=== PATIENT | female | born 1950 | race Caucasian/White ===

== ENCOUNTER 2024-03-20 07:26 | Emergency (ER) | payer MEDICARE, SELFPAY ==
[2024-03-20 07:32] VITALS: BP 154/74; PULSE 74; RESP 18; TEMP 37; O2SAT 96
--- NOTE | 2024-03-20 08:01 | CRLHL7_ITS ---
For Patients: As a result of the Century Cures Act, medical imaging exams and procedure reports are released immediately into your electronic medical record. You may view this report before your referring provider. If you have questions, please contact your health care provider. INDICATION: Bruising. On Eliquis. TECHNIQUE: Rincon-scale two-dimensional ultrasound without and with compression as well as color-flow and spectral Doppler of the left lower extremity veins. COMPARISON: None. FINDINGS: Normal compressibility of and flow within the left common femoral, superficial femoral, popliteal, posterior tibial, profunda, and greater saphenous veins is demonstrated. No thrombus is identified. The right common femoral vein is clear. IMPRESSION: Negative left lower extremity venous Doppler study. Dictated by Raúl Harris MD @ 03/20/2024 9:15:19 AM (Electronically Signed)
--- NOTE | 2024-03-20 08:02 | ED.GENADULT ---
HPI - General Adult General Chief complaint: Lower Extremity Swelling Stated complaint: L leg bruising, swelling Time Seen by Provider: 03/20/24 07:49 History of Present Illness HPI narrative: This 73-year-old female comes in with a large bruise on the medial aspect of her left leg. She is on Eliquis to manage atrial fibrillation. She does not report any injury event. She states that she had some overuse injury with pain in her left leg 3 days ago. At that time she went to [facility] and had an x-ray which was negative. 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 She did have her right knee replaced. She has a bruise on the medial aspect now of her left leg extending from her knee half way up to her hip on the medial aspect. She does not report any shortness of breath. Related Data Home Medications ?Medication ?Instructions ?Recorded ?Confirmed apixaban 5 mg tablet (Eliquis) 5 mg PO BID 03/20/24 03/20/24 fexofenadine 180 mg tablet 180 mg PO DAILY 03/20/24 03/20/24 (Rona Hives) rosuvastatin 20 mg tablet (Crestor) 20 mg PO DAILY 03/20/24 03/20/24 valesrtan 160 mg PO DAILY 03/20/24 03/20/24 Allergies Allergy/AdvReac Type Severity Reaction Status Date / Time simvastatin Allergy Mild muscle Verified 03/20/24 07:44 cramps, stiffness Review of Systems Status of ROS: Reports: 10 or more systems reviewed and unremarkable except as noted in History and below Narrative: Constitutional: No fevers, no weight gain or loss. Eyes: No discharge. No vision changes. HENT: No congestion, no sore throat, no ear pain. Cardiovascular: No chest pain, no palpitations. Respiratory: No shortness of breath, no wheezes, no cough. Gastrointestinal: No abdominal pain, no vomiting, no diarrhea. Genitourinary: No dysuria, no hematuria. Musculoskeletal: Normal range of motion. Skin: No rashes, no pruritis. Neurological: No dizziness, weakness, sensory change, speech change. Endo/Heme/Allergies: No bruising or bleeding. No polydipsia. Pysch: no suicidality, no anxiety, no insomnia. All other systems reviewed and are negative. PFSH PFSH Medical History (Updated 03/20/24 @ 09:14 by Simon Sherman MD) After cataract of both eyes not obscuring vision ?H26.493 - Other secondary cataract, bilateral (ICD-10) Atrial fibrillation ?I48.91 - Unspecified atrial fibrillation (ICD-10) Hyperlipemia ?E78.5 - Hyperlipidemia, unspecified (ICD-10) Surgical History (Updated 03/20/24 @ 07:47 by Rosina Villa RN) Total knee replacement status ?Z96.659 - Presence of unspecified artificial knee joint (ICD-10) Social History Smoking Status: Never smoker Do you use any of these nicotine containing products: None How often do you have a drink containing alcohol: monthly or less How many standard drinks containing alcohol do you have on a typical day: 1 or 2 AUDIT-C Alcohol total score: 1 Non-prescribed substance use: denies use Exam Narrative: Exam Narrative: Constitutional: Well-developed, well-nourished, no acute distress. HEENT: Normocephalic, atraumatic. Neck: Normal range of motion. Nontender. Supple. Heart: Intact distal pulses. Lungs: No chest discomfort. No wheezes, rhonchi, or rales. Abdomen: Nontender. Back: Normal range of motion. Extremities: Normal range of motion. Large ecchymosis on the medial aspect of the left leg but no increased warmth or palpable hematoma. No other sign of injury. Skin: Intact. No rash. Warm. No erythema or pallor. Neurologic: No altered sensation. No weakness. Alert and oriented. Psychiatric: No suicidality. No anxiety or depression. No insomnia. Nursing notes and vitals signs are reviewed. Const: Vital Signs, click to edit/add: Vital Signs - 24 hr 03/20/24 07:32 Temperature 98.6 F Pulse Rate [Pulse Oximeter] 74 Respiratory Rate 18 Blood Pressure [Ri ght Upper Arm] 154/74 H Pulse Oximetry 96 Oxygen Delivery Me thod Room Air Course Vital Signs Vital signs: Initial Vital Signs Temperature 98.6 F 03/20/24 07:32 Temperature Source Temporal Artery Scan 03/20/24 07:32 Pulse Rate 74 03/20/24 07:32 Respiratory Rate 18 03/20/24 07:32 Blood Pressure 154/74 H 03/20/24 07:32 Blood Pressure Mean 100 03/20/24 07:32 Blood Pressure Position Sitting 03/20/24 07:32 Pulse Oximetry 96 03/20/24 07:32 Oxygen Delivery Method Room Air 03/20/24 07:32 Vital Signs Temperature 98.6 F 03/20/24 07:32 Pulse Rate 74 03/20/24 07:32 Respiratory Rate 18 03/20/24 07:32 Blood Pressure 154/74 H 03/20/24 07:32 Pulse Oximetry 96 03/20/24 07:32 Oxygen Delivery Method Room Air 03/20/24 07:32 Temperature 98.6 F 03/20/24 07:32 Pulse Rate 74 03/20/24 07:32 Respiratory Rate 18 03/20/24 07:32 Blood Pressure 154/74 H 03/20/24 07:32 Pulse Oximetry 96 03/20/24 07:32 Oxygen Delivery Method Room Air 03/20/24 07:32 Medical Decision Making MDM Narrative Medical decision making narrative: Patient has a large bruise on the medial aspect of her left upper leg. She is on Eliquis to manage atrial fibrillation. She does not describe a particular injury event. She comes in because she is concerned about the size of this bruising. She is able to ambulate normally. She arrives with normal vital signs. An ultrasound of her left lower extremity is obtained and shows no abnormal findings. There is no sign of thrombus or active bleeding. Discharge Plan Discharge Clinical Impression: Ecchymosis Patient Disposition: Home, Self-Care Condition: Stable Additional Instructions: Continue current plans. Follow up with MD return if worsening. Prescriptions: No Action valesrtan 160 mg PO DAILY fexofenadine [Rona Hives] 180 mg tablet 180 mg PO DAILY Eliquis 5 mg tablet 5 mg PO BID rosuvastatin [Crestor] 20 mg tablet 20 mg PO DAILY Follow Up/Referrals: Trixie Cruz, JOINT SETTER [Primary Care Provider] - Stand Alone Forms: [employer] Info Instructions
--- OUTSIDE RECORDS SUMMARY | 2024-03-20 08:11 | XMS_ITS | Data Portability ---
Author Organization [place] - [facility] [employer], [email or web address] [facility] Address [address] [place] [address] Assessment Encounter Date Assessment Date Assessment LastModified by Organization Details LastModified Time 02/09/2024 02/09/2024 ASSESSMENT: Patient is a good candidate for conservative care and the prognosis is for a favorable outcome that achieves the patients' goals. We discussed etiology, activity modifications, home care, and other treatment options. Initially, it is recommended that the patient receive in-office treatment 1 times per week for 8 weeks at which time a re-evaluation will be performed to determine an appropriate change in plan. Initially, treatment will focus on joint manipulation to restore range of motion and reduce pain. We will slowly progress to therapeutic exercises and activities to improve function, strength, and stability may also be used as warranted. If the patient is not responding as expected, more invasive procedures will be discussed along with a referral. All considerations above were discussed with the patient and questions answered to satisfaction. If the patient should have any additional questions, or should the condition evolve or worsen, the patient should not hesitate to contact our office. ASSESSMENT: Patient is a good candidate for conservative care and the prognosis is for a favorable outcome that achieves the patients' goals. We discussed etiology, activity modifications, home care, and other treatment options. Initially, it is recommended that the patient receive in-office treatment 1 times per week for 8 weeks at which time a re-evaluation will be performed to determine an appropriate change in plan. Initially, treatment will focus on joint manipulation to restore range of motion and reduce pain. We will slowly progress to therapeutic exercises and activities to improve function, strength, and stability may also be used as warranted. If the patient is not responding as expected, more invasive procedures will be discussed along with a referral. All considerations above were discussed with the patient and questions answered to satisfaction. If the patient should have any additional questions, or should the condition evolve or worsen, the patient should not hesitate to contact our office. ecram Not available 02/09/2024 15:29:24 03/08/2024 03/08/2024 ASSESSMENT: Patient is a good candidate for conservative care and the prognosis is for a favorable outcome that achieves the patients' goals. We discussed etiology, activity modifications, home care, and other treatment options. Initially, it is recommended that the patient receive in-office treatment 1 times per week for 8 weeks at which time a re-evaluation will be performed to determine an appropriate change in plan. Initially, treatment will focus on joint manipulation to restore range of motion and reduce pain. We will slowly progress to therapeutic exercises and activities to improve function, strength, and stability may also be used as warranted. If the patient is not responding as expected, more invasive procedures will be discussed along with a referral. All considerations above were discussed with the patient and questions answered to satisfaction. If the patient should have any additional questions, or should the condition evolve or worsen, the patient should not hesitate to contact our office. ASSESSMENT: Patient is a good candidate for conservative care and the prognosis is for a favorable outcome that achieves the patients' goals. We discussed etiology, activity modifications, home care, and other treatment options. Initially, it is recommended that the patient receive in-office treatment 1 times per week for 8 weeks at which time a re-evaluation will be performed to determine an appropriate change in plan. Initially, treatment will focus on joint manipulation to restore range of motion and reduce pain. We will slowly progress to therapeutic exercises and activities to improve function, strength, and stability may also be used as warranted. If the patient is not responding as expected, more invasive procedures will be discussed along with a referral. All considerations above were discussed with the patient and questions answered to satisfaction. If the patient should have any additional questions, or should the condition evolve or worsen, the patient should not hesitate to contact our office. ecram Not available 03/08/2024 15:41:47 03/15/2024 03/15/2024 ASSESSMENT: Patient is a good candidate for conservative care and the prognosis is for a favorable outcome that achieves the patients' goals. We discussed etiology, activity modifications, home care, and other treatment options. Initially, it is recommended that the patient receive in-office treatment 1 times per week for 8 weeks at which time a re-evaluation will be performed to determine an appropriate change in plan. Initially, treatment will focus on joint manipulation to restore range of motion and reduce pain. We will slowly progress to therapeutic exercises and activities to improve function, strength, and stability may also be used as warranted. If the patient is not responding as expected, more invasive procedures will be discussed along with a referral. All considerations above were discussed with the patient and questions answered to satisfaction. If the patient should have any additional questions, or should the condition evolve or worsen, the patient should not hesitate to contact our office. ASSESSMENT: Patient is a good candidate for conservative care and the prognosis is for a favorable outcome that achieves the patients' goals. We discussed etiology, activity modifications, home care, and other treatment options. Initially, it is recommended that the patient receive in-office treatment 1 times per week for 8 weeks at which time a re-evaluation will be performed to determine an appropriate change in plan. Initially, treatment will focus on joint manipulation to restore range of motion and reduce pain. We will slowly progress to therapeutic exercises and activities to improve function, strength, and stability may also be used as warranted. If the patient is not responding as expected, more invasive procedures will be discussed along with a referral. All considerations above were discussed with the patient and questions answered to satisfaction. If the patient should have any additional questions, or should the condition evolve or worsen, the patient should not hesitate to contact our office. ecram Not available 03/15/2024 15:48:01 Plan of Treatment Reminders Order Date Submit Date Provider Last Modified By Organization Details Last Modified Time Details Appointments None record ed. Lab None record ed. Referral None record ed. Procedures None record ed. Surgeries None record ed. Imaging None record ed. Medication Orders None record ed. Patient TargetsNo targets recorded. Patient InstructionsNo instructions recorded. Reason for Referral None Reported. Problems Name Problem SNOMED Code Status Onset Date Resolution Date Notes Provider Name and Address Organization Details Recorded Time Thoracic segmental dysfunction 736920084 Active 2023 Jong Patton DC [address], [place], [address] [place] [address] 15:29:18 Low back pain 518516132 Active 2023 Jong Patton DC [address], [place], [address], [facility] 4 15:29:18 Lumbar segmental dysfunction 622759409 Active 2023 Jong Patton DC [address], [place], [address], [facility] 4 15:29:18 Somatic dysfunction of sacral spine 034292558 Active 2023 Jong Patton DC [address], [place], [address], [facility] 4 15:29:18 Neck pain 89997185 Active 2023 Jong Patton DC [address], [place], [address], [facility] 4 15:29:25 Cervical segmental dysfunction 502413882 Active 2023 Jong Patton DC [address], [place], [address], [facility] 4 15:29:25 Problem Notes None recorded. Procedures Surgical History Date Name Laterality Status Provider Name and Address Organization Details Recorded Time 5 04957: Spinal manipulation , 3 to 4 regions completed Jong Patton, [place] [address], [place], [address], [facility] 03/15/2024 15:48:00 5 [address]: Spinal manipulation , 3 to 4 regions completed Jong Patton, [place] [address], [place], [address], [facility] 03/08/2024 15:41:47 4 [address]498: Spinal manipulation , 3 to 4 regions completed Jong Patton, [place] [address], [place], [address], [facility] 02/09/2024 15:30:25 Imaging Results None recorded. Procedure Notes None recorded. Medical Equipment None Reported. Medications Name Sig Start Date Stop Date Status Note LastModified by Organization Details LastModified Time valsartan 80 mg tablet TAKE 2 TABLETS (160 MG) BY MOUTH ONCE DAILY. active Not Available Not Available No t Available rosuvastatin 10 mg tablet TAKE 1 TABLET BY MOUTH EVERYDAY AT BEDTIME active Not Available Not Available No t Available rosuvastatin 20 mg tablet TAKE 1 TABLET BY MOUTH AT BEDTIME active Not Available Not Available No t Available Eliquis 5 mg tablet TAKE 1 TABLET BY MOUTH TWO TIMES DAILY. active Not Available Not Available No t Available Vitals None Recorded Social History None recorded. Functional Status None recorded. Mental Status None recorded. Family History Nothing Reported. Medical History No medical history recorded. Gynecological HistoryNo gynecological history recorded. Obstetrics History GPAL:G 0 P 0 0 0 0 Past Encounters Encounter ID Performer Location Encounter Start Date Encounter Closed Date Diagnosis/Indication Diagnosis SNOMED-CT Code Diagnosis ICD10 Code Diagnosis Note [id number] Jong Patton DC [address] [place] [address] 02/09/2024 15:28:25 02/09/2024 15:52:29 Lumbar segmental dysfunction 086244097 M99.03 Low back pain 170649496 M54.50 Somatic dy sfunction of sacral spine 354687475 M99.04 Thoracic s egmental dysfunction 021555084 M99.02 Cervical s egmental dysfunction 706682195 M99.01 Neck pain 65678601 M54.2 [id number] Jong Patton DC [address] [place] [address] 03/08/2024 15:21:56 03/08/2024 16:03:02 Lumbar segmental dysfunction 512273622 M99.03 Low back pain 799711084 M54.50 Somatic dy sfunction of sacral spine 646754601 M99.04 Thoracic s egmental dysfunction 922368182 M99.02 Cervical s egmental dysfunction 207206456 M99.01 Neck pain 75201704 M54.2 [id number] Jong Patton DC [address] [place] [address] 03/15/2024 15:44:21 03/15/2024 15:49:46 Lumbar segmental dysfunction 178506301 M99.03 Low back pain 896710270 M54.50 Somatic dy sfunction of sacral spine 768461866 M99.04 Thoracic s egmental dysfunction 010119427 M99.02 Cervical s egmental dysfunction 125334328 M99.01 Neck pain 89737480 M54.2 Health Concerns Section Related Observation LastModified by Organization Detai ls LastModified Time None Recorded Concern Status LastModified by Organization Details LastModified Time None Recorded Advance Directives Directive None Recorded Payers Encounter Date Sequence Insurance Name Policy Number Policy Lovell Covered Member ID Lovell Member ID Guarantor Name 02/09/2024 1 [employer] - INDIVIDUAL AND FAMILY (HMO) [id number] Carolee Mason Schwanebeck [id number] Carolee Schwanebeck 02/09/2024 2 [place] [employer] Carolee Mason Schwanebeck [id number] Carolee Schwanebeck 03/08/2024 [facility] [id number] Carolee Schwanebeck [id number] Carolee Schwanebeck 03/15/2024 2 [place] [employer] [facility] Carolee M Schwanebeck [id number] Carolee Schwanebeck 03/15/2024 1 [employer] - INDIVIDUAL AND FAMILY (HMO) [id number] Carolee Schwanebeck [id number] Carolee Schwanebeck Notes Date Note Type Note Provider Name and Address Organization Details Recorded Time 02/09/2024 text/html HPI - Cervical SpineReported bypatient.Location: left Quality:aching Severity:moderate Duration:2 weeks Timing:gradual Alleviating Factors:ice Aggravating Factors:sitting Associated Symptoms:no numbness/tinglingHP I - Lumbar SpineReported bypatient.Location: right; With radiation to knee Quality:aching Severity:not changing Timing:morning; recurrent Aggravating Factors:standing Alleviating Factors:ice Jong Patton DC [address], [place], [address], [facility] 02/09/2024 15:52:03 03/08/2024 text/html HPI - Cervical SpineReported bypatient.Location: right Quality:sharp Severity:moderate Duration:2 weeks Timing:acute Context:overuse; twisting Alleviating Factors:rest; ice Aggravating Factors:bending; twisting/turning Associated Symptoms:no numbness/tinglingHP I - Lumbar SpineReported bypatient.Location: right; With radiation to knee Quality:aching Severity:worsening Timing:recurrent Context:bending; lifting; twisting Aggravating Factors:lifting; carrying; twisting Alleviating Factors:ice; rest Jong Patton DC [address], [place], [address], [facility] 03/08/2024 15:43:41 03/15/2024 text/html HPI - Cervical SpineReported bypatient.Location: right Quality:sharp Severity:moderate Duration:2 weeks Timing:acute Context:overuse; twisting Alleviating Factors:rest; ice Aggravating Factors:bending; twisting/turning Associated Symptoms:no numbness/tinglingHP I - Lumbar SpineReported bypatient.Location: right; With radiation to knee Quality:aching Severity:worsening Timing:recurrent Context:bending; lifting; twisting Aggravating Factors:lifting; carrying; twisting Alleviating Factors:ice; rest Jong Patton DC [address], [place], [address], [facility] 03/15/2024 15:49:32 OBGyn Episode No OBEpisode recorded.
--- OUTSIDE RECORDS SUMMARY | 2024-03-20 08:11 | XMS_ITS | Continuity of Care Document ---
Author Organization [place] [facility] Address [address] [address] [facility] [address] [place] [address] Assessment Encounter Date Assessment Date Assessment LastModified by Organization Details LastModified Time 03/15/2024 03/15/2024 ASSESSMENT: Patient is a good [...] Organization Details Recorded Time Thoracic segmental dysfunction 025015603 Active 2023 Jong Patton DC [address], [place], [address], [facility] 4 15:29:18 Low back pain 221985258 Active 2023 Jong Patton DC [address], [facility] [place], [address], [facility] 4 15:29:18 Lumbar segmental dysfunction 711660454 Active 2023 Jong HernandezoneidaCECY [address], [place], [address], [facility] 4 15:29:18 Somatic dysfunction of sacral spine 889518844 Active 2023 Jong Patton DC [address], [place], [address], [facility] 4 15:29:18 Neck pain 65053596 Active 2023 Jong Patton DC [address], [place], [address], [facility] 4 15:29:25 Cervical segmental dysfunction 471431373 Active 2023 Jong Patton DC [address], [place], [address], [facility] 4 15:29:25 Problem Notes None recorded. Procedures Surgical History Date Name Laterality Status Provider Name and Address Organization Details Recorded Time 5 09314: Spinal manipulation , 3 to 4 regions completed Jong Patton DC [address], [place], [address], [facility] 03/15/2024 15:48:00 5 16864: Spinal manipulation , 3 to 4 regions completed Jong Patton DC [address], [place], [address], [facility] 03/08/2024 15:41:47 4 81572: Spinal manipulation , 3 to 4 regions completed Jong Patton DC [address], [place], [address], [facility] 02/09/2024 15:30:25 Imaging Results [...] SNOMED-CT Code Diagnosis ICD10 Code Diagnosis Note [id number] [facility] B[facility] [address] [place] [address] 03/08/2024 15:21:56 03/08/2024 16:03:02 Lumbar segmental dysfunction 577911717 M99.03 Low back pain 650126135 M54.50 Somatic dy sfunction of sacral spine 451089070 M99.04 Thoracic s egmental dysfunction 737639881 M99.02 Cervical s egmental dysfunction 031156477 M99.01 Neck pain 06111451 M54.2 [id number] CECY Bhat [facility] [address] [place] [address] 03/15/2024 15:44:21 03/15/2024 15:49:46 Lumbar segmental dysfunction 477289329 M99.03 Low back pain 829102977 M54.50 Somatic dy sfunction of sacral spine 359073398 M99.04 Thoracic s egmental dysfunction 302539115 M99.02 Cervical s egmental dysfunction 411177570 M99.01 Neck pain 57728526 M54.2 Health Concerns Section Related Observation LastModified by Organization Detai ls LastModified Time None Recorded Concern Status LastModified by Organization Details LastModified Time None Recorded Payers Encounter Date Sequence Insurance Name Policy Number Policy Lovell Covered Member ID Lovell Member ID Guarantor Name 03/15/2024 2 [place] [employer] Carolee Andres [id number] Carolee Andres 03/15/2024 1 [employer] - INDIVIDUAL AND FAMILY (HMO) [id number] Carolee Andres [id number] Carolee Andres Notes Date Note Type Note Provider Name and Address Organization Details Recorded Time 03/15/2024 text/html HPI - Cervical SpineReported bypatient.Location: right Quality:sharp Severity:moderate Duration:2 weeks Timing:acute Context:overuse; twisting Alleviating Factors:rest; ice Aggravating Factors:bending; twisting/turning Associated Symptoms:no numbness/tinglingHP I - Lumbar SpineReported bypatient.Location: right; With radiation to knee Quality:aching Severity:worsening Timing:recurrent Context:bending; lifting; twisting Aggravating Factors:lifting; carrying; twisting Alleviating Factors:ice; rest Jong Patton DC [address], [place], [address], [facility] [place] [facility] 03/15/2024 15:49:32 OBGyn Episode No OBEpisode recorded.
--- OUTSIDE RECORDS SUMMARY | 2024-03-20 08:11 | XMS_ITS | Continuity of Care Document ---
Author Organization [place] [facility] Address [address] [place] [address] Assessment Encounter Date Assessment Date Assessment LastModified by Organization Details LastModified Time 03/08/2024 03/08/2024 ASSESSMENT: Patient is a good [...] our office. ecram Not available 03/08/2024 15:41:47 Plan of Treatment Reminders Order Date Submit [...] Organization Details Recorded Time Thoracic segmental dysfunction 416123653 Active 2023 Jong Patton DC [address] [facility], [place], [address], [facility] 4 15:29:18 Low back pain 047249660 Active 2023 Jong Patton DC [address] [facility], [place], [address], [facility] 4 15:29:18 Lumbar segmental dysfunction 744793098 Active 2023 Jong HernandezoneidaCECY [address] [facility], [place], [address], [facility] 4 15:29:18 Somatic dysfunction of sacral spine 498428140 Active 2023 Jong Patton DC [address] [facility], [facility], [address], [facility] 4 15:29:18 Neck pain 30682600 Active 2023 Jong Patton DC [address] [facility], [place], [address], [facility] 4 15:29:25 Cervical segmental dysfunction 447642563 Active 2023 Jong Patton DC [address] [facility], [place], [address], [facility] 4 15:29:25 Problem Notes None recorded. Procedures Surgical History Date Name Laterality Status Provider Name and Address Organization Details Recorded Time 5 89102: Spinal manipulation , 3 to 4 regions completed Jong Patton DC [address] [facility], [place], [address], [facility] 03/15/2024 15:48:00 5 35034: Spinal manipulation , 3 to 4 regions completed Jong Patton DC [address] [facility], [place], [address], [facility] 03/08/2024 15:41:47 4 00749: Spinal manipulation , 3 to 4 regions completed Jong Patton DC [address] [facility], [place], [address], [facility] 02/09/2024 15:30:25 Imaging Results None recorded. Procedure [...] SNOMED-CT Code Diagnosis ICD10 Code Diagnosis Note [id number] CECY Bhat [facility] [address] [facility] [place] [address] 02/09/2024 15:28:25 02/09/2024 15:52:29 Lumbar segmental dysfunction 333008720 M99.03 Low back pain 329187417 M54.50 Somatic dy sfunction of sacral spine 107943198 M99.04 Thoracic s egmental dysfunction 801903839 M99.02 Cervical s egmental dysfunction 964304826 M99.01 Neck pain 16941015 M54.2 [id number] CECY Bhat [facility] [address] [facility] [place] [address] 03/08/2024 15:21:56 03/08/2024 16:03:02 Lumbar segmental dysfunction 075705918 M99.03 Low back pain 702840281 M54.50 Somatic dy sfunction of sacral spine 559254818 M99.04 Thoracic s egmental dysfunction 957842065 M99.02 Cervical s egmental dysfunction 944080875 M99.01 Neck pain 74034064 M54.2 Health Concerns Section Related Observation LastModified by Organization Detai ls LastModified Time None Recorded Concern Status LastModified by Organization Details LastModified Time None Recorded Payers Encounter Date Sequence Insurance Name Policy Number Policy Lovell Covered Member ID Lovell Member ID Guarantor Name 03/08/2024 [facility] [id number] Carolee Andres [id number] Carolee Taylorashley Notes Date Note Type Note Provider Name and Address Organization Details Recorded Time 03/08/2024 text/html HPI - Cervical SpineReported bypatient.Location: right Quality:sharp Severity:moderate Duration:2 weeks Timing:acute Context:overuse; twisting Alleviating Factors:rest; ice Aggravating Factors:bending; twisting/turning Associated Symptoms:no numbness/tinglingHP I - Lumbar SpineReported bypatient.Location: right; With radiation to knee Quality:aching Severity:worsening Timing:recurrent Context:bending; lifting; twisting Aggravating Factors:lifting; carrying; twisting Alleviating Factors:ice; rest Jong Patton DC [address] [facility], [place], [address], [facility] [place] [facility] 03/08/2024 15:43:41 OBGyn Episode No OBEpisode recorded.
--- OUTSIDE RECORDS SUMMARY | 2024-03-20 08:11 | XMS_ITS | Continuity of Care Document ---
Author Organization [place] [facility] Address [address] [facility] [address] [place] [address] Assessment Encounter Date Assessment Date Assessment LastModified [...] our office. ecram Not available 02/09/2024 15:29:24 Plan of Treatment Reminders Order Date Submit [...] Organization Details Recorded Time Thoracic segmental dysfunction 479305033 Active 2023 Jong Patton DC [address] [facility], [facility] [place], [address], [facility] 4 15:29:18 Low back pain 474040585 Active 2023 Jong Patton DC [address] [facility], [place], [address], [facility] 4 15:29:18 Lumbar segmental dysfunction 970226838 Active 2023 Jong HernandezoneidaCECY [address] [facility], [facility] [place], [address], [facility] 4 15:29:18 Somatic dysfunction of sacral spine 802987663 Active 2023 Jong Patton DC [address] [facility], [facility] [place], [address], [facility] 4 15:29:18 Neck pain 36056216 Active 2023 Jong Patton DC [address] [facility], [facility] [place], [address], [facility] 4 15:29:25 Cervical segmental dysfunction 843259417 Active 2023 Jong Patton DC [address] [facility], [facility] [place], [address], [facility] 4 15:29:25 Problem Notes None recorded. Procedures Surgical History Date Name Laterality Status Provider Name and Address Organization Details Recorded Time 5 82255: Spinal manipulation , 3 to 4 regions completed Jong Patton DC [address] [facility], [place], [address], [facility] 03/15/2024 15:48:00 5 67349: Spinal manipulation , 3 to 4 regions completed Jong Patton DC [address] [facility], [place], [address], [facility] 03/08/2024 15:41:47 4 35559: Spinal manipulation , 3 to 4 regions completed Jong Patton DC [address] [facility], [place], [address], [facility] 02/09/2024 15:30:25 Imaging Results None [...] SNOMED-CT Code Diagnosis ICD10 Code Diagnosis Note [id number] CECY Bhat [facility] [address] [facility] [place] [address] 02/09/2024 15:28:25 02/09/2024 15:52:29 Lumbar segmental dysfunction 356807957 M99.03 Low back pain 808885305 M54.50 Somatic dy sfunction of sacral spine 408043474 M99.04 Thoracic s egmental dysfunction 303250344 M99.02 Cervical s egmental dysfunction 403677188 M99.01 Neck pain 38523350 M54.2 Health Concerns Section Related Observation LastModified by Organization Detai ls LastModified Time None Recorded Concern Status LastModified by Organization Details LastModified Time None Recorded Payers Encounter Date Sequence Insurance Name Policy Number Policy Lovell Covered Member ID Lovell Member ID Guarantor Name 02/09/2024 1 [employer] - INDIVIDUAL AND FAMILY (HMO) [id number] Carolee Mason Dmitry [id number] Carolee Andres 02/09/2024 2 [place] [employer] Carolee Mason Dmitry [id number] Carolee Andres Notes Date Note Type Note Provider Name and Address Organization Details Recorded Time 02/09/2024 text/html HPI - Cervical SpineReported bypatient.Location: left Quality:aching Severity:moderate Duration:2 weeks Timing:gradual Alleviating Factors:ice Aggravating Factors:sitting Associated Symptoms:no numbness/tinglingHP I - Lumbar SpineReported bypatient.Location: right; With radiation to knee Quality:aching Severity:not changing Timing:morning; recurrent Aggravating Factors:standing Alleviating Factors:ice Jong Patton DC [address] [facility], [place], [address], [facility] 02/09/2024 15:52:03 OBGyn Episode No OBEpisode recorded.
--- OUTSIDE RECORDS SUMMARY | 2024-03-20 08:12 | XMS_ITS | Clinical Summary ---
Author Organization [employer] Address [place], [place] [address] Care Team Providers Care Transmissions Systems Operator Name Role Phone Flora Cruz NURSING HOME PHYSICIAN Primary Care Pro vider Allergies Active Allergy Reactions Criticality Noted Date Comments Simvastatin Myalgia 08/02/2018 Medications multivitamins-calc qvd-lcfe-ryuxpjks (ONE-A-DAY WOMENS FORMULA) 27-0.4 mg Tab tablet Take 1 tablet by mouth once daily. 0 01/09/20 10 Active cholecalciferol (VITAMIN D-3) 2,000 unit capsule Take 1 capsule by mouth once daily. 0 02/17/20 15 Active fluticasone (50 mcg per actuation) nasal solution (FLONASE)Indicatio ns:Chronic nasal congestion,Seasona l allergies INHALE 2 SPRAYS TO BOTH NOSTRILS ONCE DAILY 48 mL 3 08/07/19 23 Active azelastine 137 mcg/actuation (ASTELIN) nasal sprayIndications:C hronic nasal congestion Inhale 1 Beebe into affected nostril(s) two times daily. Use as needed. May use in conjunction with nasal steroid medications. 30 mL 3 08/23/19 23 Active valsartan (DIOVAN) 80 mg tabletIndications: HTN (hypertension) Take 2 Tablets (160 mg) by mouth once daily. 180 Tablet 02/05/20 24 Active fexofenadine (Rona Allergy) 60 mg tablet Take 1 tablet daily 02/05/20 24 Active acetaminophen (TYLENOL) 325 mg tablet Take 1-2 Tablets (325-650 mg) by mouth every 8 hours. Maximum dose of acetaminophen is 4000 mg from all sources in 24 hours. 02/05/20 24 Active rosuvastatin (CRESTOR) 20 mg tabletIndications: Hypercholesterolem ia Take 1 Tablet (20 mg) by mouth at bedtime. 90 Tablet 3 02/10/20 24 Active apixaban (ELIQUIS) 5 mg tabletIndications: prevent thromboembolism in chronic atrial fibrillation Take 1 Tablet (5 mg) by mouth two times daily. 180 Tablet 3 03/19/19 25 Active apixaban (ELIQUIS) 5 mg tabletIndications: prevent thromboembolism in chronic atrial fibrillation Take 1 Tablet (5 mg) by mouth two times daily. 60 Tablet 2 02/05/20 24 025 Disconti nued(Reo rder (E-cance l not sent)) Active Problems Problem Noted Date Diagnosed Date Primary osteoarthritis of left knee 12/02/2020 HTN (hypertension) 06/23/2017 s/p right total knee arthroplasty 12/26/1601/05 Morbid obesity 12/26/2016 Osteopenia 05/04/2015 Overview (07/16/2018): Bone density 07/16/2018 Peptic stricture of esophagus 10/13/2014 Retinal operculated hole of left eye 01/13/2014 Menopausal state 01/07/2010 Hypercholesterolemia 01/07/2010 Colon polyps 01/07/2010 Overview (12/04/2019): Last colonoscopy 11/28/19 follow up suggested 5 years Health maintenance 01/07/2010 Overview (11/15/2020): Last Lipids 08/27/19: Chol: 192 T HDL 41 LDL:120 Mammogram 11/15/2020 Colonoscopy 11/28/19 follow up suggested 5 years DEXA 07/16/2018 osteopenia. Follow up suggested 2-3 years Hysterectomy 2000 Last physical exam 08/27/19 Resolved Problems Problem Noted Date Diagnosed Date Resolved Date Primary osteoarthritis of right knee 09/05/2016 11/30/2020 Osteoporosis 01/07/2010 05/04/2015 Encounters Date Type Department Care Team Description 03/20/2024 Nurse Triage [facility] [address] [place] [address] Flora Cruz NP Skin Problem 03/19/2024 8:00 AM [employer]AND FIRE [employer] Office Visit [facility] [address] [facility] [address] [place] [address] Jose Calixto MD Consult (Initial apt./Echo and EKG done 02/05/24 //Pt states she is doing well and denies cardiac sx. /) 03/19/2024 Travel 02/16/2024 11:40 AM WILDLAND FIRE FIGHTER Ancillary Procedure [facility] [address] [place] [address] 02/16/2024 Travel 02/10/2024 Orders Only [facility] [address] [place] [address] Flora Cruz NP <No scans attached> 02/06/2024 Orders Only [facility] [address] [place] [address] Flora Cruz NP 1 scan: (1-Ord) 02/05/2024 02/05/2024 2:00 PM [employer]IL[employer]AND FI[employer] Ancillary Procedure [facility] [address] [facility] [address] [place] [address] 02/05/2024 9:00 AM [employer]AND FI[employer] Office Visit [facility] [address] [place] [address] Flora Cruz NP Medicare ANNUAL (subsequent) Visit 02/05/2024 Orders Only [facility] [address] [place] [address] [facility]: (1-Ord) Zio Report 02/05/2024 Travel from Last 3 Months Immunizations Name Administration Dates Next Due Amb Influenza, Inactivated A IIV4 (Age 65+ Years) Preserv Free 12/03/2019 COVID-19 vaccine ([employer] 30mcg/0.3mL) JARRETT PADILLA 04/16/2020,03/26/2020 Hepatitis A (Adult) 11/11/2003 Influenza A (H1N1), Inactivated 02/05/2009 Influenza Virus, Unspecified 12/11/2014 Influenza, High-dose Inactivated 01/08/2024,11/27,12/12/2017 Influenza, IIV3 (Age >=3 years) 12/29/2010,12/28,12/28/2007 Influenza, IIV4 (=>6mos) MDV 11/29/2016 Influenza, Inactivated AIIV4 (Age 65+ Years) Preserv Free 12/06/2022,12/07/2021,12/03/2020 Pneumococcal Poly,23-Valent (Pneumovax) 07/14/19 19 Pneumococcal conj 13-Valent (Prevnar 13) 018 Td (Age >=7 Years) 12/07/2021,11/11/2003 Tdap 07/22/2011 Zoster (Shingrix-RZV, recombinant) 09/29/2017, Family History Medical History Relation Name Comments Stroke Father Cancer Maternal Grandmother uterine Diabetes Mother Heart Disease Mother Osteoporosis Mother Cancer-breast No Family History Cancer-colon No Family History Cancer-ovarian No Family History Cancer-prostate No Family History Relation Name Status Comments Father Maternal Grandmother Mother Neg. only child Social History Tobacco Use Types Packs/Day Years Used Date Smoking Tobacco: Never Smokeless Tobacco: Never Alcohol Use Standard Drinks/Week Comments Yes 0 (1 standard drink = 0.6 oz pur e alcohol) less than a drink per month PHQ-2 Answer Date Recorded PHQ-2 TOTAL SCORE 0 02/05/2024 Social Connections Answer Date Recorded Do you often feel lonely or isolated from those around you? 0 02/07/2024 Financial Resource Strain Answer Date R ecorded Difficulty of Paying Living Expenses 3 02/07/2024 Difficulty of Paying Living Expenses Not on file 02/07/2024 Food Insecurity Answer Date Recorded Do you worry your food will run out before you are able to buy more? 1 02/07/2024 Transportation Needs Answer Date Record ed Does lack of transportation keep you from medica l appointments? 1 02/07/2024 Does lack of transportation keep you from work, meetings or getting things that you need? 1 02/07/2024 Housing Stability Answer Date Recorded What is your housing situation today? 1 02/07/2024 Utilities Answer Date Recorded Do you have trouble paying f or utilities (for example, heat, electricity, water, phone)? 1 02/07/2024 Comments No Sex and Gender Information Value Date Recorded Sex Assigned at Not on file Legal Sex Female 6:04 AM W[employer]AND FI[employer] Gender Identity Not on file Sexual Orientation Not on file Occupation Industry Job Start Date Job End Date RN Not on file Not on file Not on file Obstetrics History Last Filed Vital Signs Vital Sign Reading Time Taken Comments Blood Pressure 120/82 03/19/2024 8:04 AM [employer]AND FI[employer] Pulse 66 03/19/2024 8:04 AM [employer] Temperature 36.4 C (97.6 F) 12/03/2020 8:05 AM CDT Respiratory Rate 16 12/03/2020 8:05 AM CDT Oxygen Saturation 98% 03/19/2024 8:04 AM [employer]AND FI[employer] Inhaled Oxygen Concentration - - Weight 100.2 kg (221 lb) 03/19/2024 8:04 AM [employer] FI[employer] Height 154.9 cm (5' 1) 03/19/2024 8:04 AM [employer]IL[employer]AND FI[employer] Body Mass Index 41.76 03/19/2024 8:04 AM WIL[employer]AND FIRE [employer]HTER Plan of Treatment Upcoming Encounters Date Type Department Care Team (Late st Contact Info) Description 03/20/2024 9:30 AM [employer] FI[employer] Office Visit [facility] [address] [place], [place] [address] Mercedes Brooks PA [address] [place], [place] [id number] Health Maintenance Due Date Last Done Comments RSV vaccine for adults or (1 - Risk 60-74 years 1-dose series) 2012 Colonoscopy through age 75 11/27/202411/27, 07/26/2013, 04/25/2008 Medicare Wellness for age 65+ 02/05/2025, 12/05/2022, 12/07/2021, Additional history exists Depression screening for age 12+ 02/14/2025 02/15/2024, 02/05/2024, 12/05/2022, Additional history exists Mammogram for age 45-75 02/15/2025 02/16/20, 02/13/2023, 12/02/2021, Additional history exists BMI (ht and wt on same day) for age 18+ 03/19/2025 03/19/2024, 02/05/2024, 12/05/2022, Additional history exists Lipids for age 45-75 02/04/2029 02/05/2024, 12/05/2022, 12/07/2021, Additional history exists Tetanus booster 12/08/2031 12/07/2021, 06/28, 11/11/2003 Tdap Completed 07/22/2011 Zoster (shingles) series for age 50+ Completed 09/29/2017, 06/23/2017 Hepatitis C screening for ag e 18-79 Completed 07/13/2018 Pneumococcal series for age 50+ Completed 9, 06/23/2017 DEXA/DXA scan for age 65+ Completed 2022, 07/13/2018, 04/27/2015, Additional history exists COVID-19 vaccine series Completed 01/08/20, 12/06/2022, 12/20/2021, Additional history exists Influenza for age 65+ Completed 01/08/2024 , 12/06/2022, 12/07/2021, Additional history exists Medical Devices Implanted Type Area Wood Treating Inspector Device Identifier Shelf Expiration Date Model / Serial / Lot Patella Sz29 Tresa Ii Rnd [facility] Pors - [id number] Implanted:Qty: 1 on 12/26/2016 by Karlo Bull MD at [facility] Ortho Total Joint Right: Knee [employer] 09/21/2026 [id number]# / / [id number] - [id number] Implanted:Qty: 2 on 12/26/2016 by Karlo Bull MD at [facility] Right: Knee [employer] 06/26/2021 [id number] / / [id number] Description:RALLY HV Bone Ce ment 40 GRAMS Fem Rt Sz3 Legion Cruc Ret Oxin - [id number] Implanted:Qty: 1 on 12/26/2016 by Karlo Bull MD at [facility] Right: Knee [employer] 10/16/2026 [id number]# / / [id number] Baseplate Tib Rt Sz2 Tresa Ii Titnm Non Pors - [id number] Implanted:Qty: 1 on 12/26/2016 by Karlo Bull MD at [facility] Right: Knee [employer] 09/15/2026 [id number]# / / [id number] Insert Knee Sz1-2 12mm Legion Cruc Ret High Flex Xlpe - [id number] Implanted:Qty: 1 on 12/26/2016 by Karlo Bull MD at [facility] Right: Knee [employer] 07/20/2025 [id number]# / / [id number] Iol [place] +17 Tecnis [id number] - [id number] Implanted:Qty: 1 on 08/22/2018 by Raúl Medrano MD at [facility] Right: Eye [employer] 05/22/2020 [id number] 17.0# / [id number] / Iol [place] +17.5 Tecnis [id number] - [id number] Implanted:Qty: 1 on 09/05/2018 by Raúl Medrano MD at [facility] Left: Eye [employer] 09/18/2018 [id number] 17.5# / [id number] / Explanted Type Area Wood Treating Inspector Device Identifier Shelf Expiration Date Model / Serial / Lot Guide Cutg Rt Legion Fem Tib - [id number] Explanted:Qty: 1 on 12/26/2016 by Karlo Bull MD at [facility] Right: Knee [employer] 03/07/2017 [id number] / / [id number] Procedures Procedure Name Priority Date/Time Associated Diagnosis Comments EXTENDED HOLTER Routine 02/23/2024 New onset atrial fibrillation (HC) XR MAMMO GISSEL BILAT SCREEN Routine 02/16/2024 11:40 AM [employer]AND FI[employer] Visit for screening mammogram ECHO TTE COMPLETE WO CONTRAST Routine 02/05/2024 2:41 PM [employer] New onset atrial fibrillation (HC) VITAMIN D 25 (DEFICIENCY) Routine 02/05/2024 10:49 AM [employer]AND FIRE FIGHTER Osteopenia of multiple sites BASIC METABOLIC PANEL Routine 02/05/2024 10:49 AM [employer]AND FI[employer]HTER HTN (hypertension) LIPID PANEL W REFLEX MEASURED LDL Routine 02/05/2024 10:49 AM [employer]AND FIRE [employer]HTER Hypercholesterolemia HEMOGLOBIN A1C Routine 02/05/2024 10:49 AM WIL[employer]AND FIRE FIGHTER Prediabetes LYME SCREEN W/REFLEX Routine 02/05/2024 10:49 AM WIL[employer]AND FIRE [employer]HTER Myalgia TSH Routine 02/05/2024 10:49 AM WIL[employer]AND FIRE [employer]HTER New onset atrial fibrillation (HC) EKG 12 LEAD Routine 02/05/2024 12:00 AM [employer]AND FIRE [employer]HTER Bradycardia XR DXA BONE DENSITY 2 SITES AXIAL Routine 12/12/2022 9:56 AM CDT Postmenopausal SCAN-COLONOSCOPY 11/28/2019 8:30 AM CDT ANTI HCV Routine 07/13/2018 10:39 AM CDT Need for hepatitis C screening test from Last 3 Months or Most Recently Relevant to Health Maintenance Results * ZIO PATCH XT - weekly to monthly symptoms. (02/23/2024) Narrative Sirisha Gusman - 02/23/2024 Patient enrolled with vendor this date for Extended Holter home enrollment, duration 7 days. Device will be mailed to patient by vendor. Report will be found in the Procedures tab approximately 7-10 days after end of monitor period. Flora Cohen NP CARDIAC SERVICES ORD Final Result * XR MAMMO GISSEL BILAT SCREEN (02/16/2024 11:40 AM WILDLAND FIRE FIGHTER) Anatomical Region Laterality Modality BREASTS, Breast Left, Breast Right Bilateral Mammography Impressions 02/18/2024 7:57 AM WILDLAND FIRE FIGHTER There is no radiographic evidence for malignancy. Recommend annual mammograms. MAMMOGRAM ASSESSMENT: ACR 1 Negative PATIENTS: You will also receive a letter with your examination results in an easy to read format. If you have questions about your results, please contact your referring provider. Narrative 02/18/2024 7:57 AM WILDLAND FIRE FIGHTER For Patients: As a result of the 21st Century Cures Act, medical imaging exams and procedure reports are released immediately into your electronic medical record. You may view this report before your referring provider. If you have questions, please contact your health care provider. XR MAMMO GISSEL BILAT SCREEN [[id number]] CLINICAL HISTORY: This is an asymptomatic 73 y.o. patient. INDICATION FOR EXAM: Mammogram Screening. TECHNIQUE: CC & MLO views were obtained. This study was evaluated with the assistance of Computer-Aided Detection. Breast Tomosynthesis was used in interpretation. COMPARISON FILM: Yes 02/13/23 [facility] 12/02/21 [facility] FINDINGS: There are scattered areas of fibroglandular density. There are no dominant masses, suspicious micro calcifications or areas of architectural distortion. us Flora Cohen NURSING HOME PHYSICIAN MAMMO F inal Result * ECHO TTE COMPLETE WO CONTRAST (02/05/2024 2:41 PM WILDLAND FIRE FIGHTER) AORTIC VALVE MEAN PG 7 mmHg LVEDD 4.7 cm EJECTION FRACTION 55 - 60% Anatomical Region Laterality Modality Ultrasound 02/05/2024 1:59 PM WIL[employer]AND FIRE [employer]HTER Narrative 02/05/2024 4:17 PM WILDLAND FIRE FIGHTER ECHOCARDIOGRAM CAROLEE ANDRES : 1950 73 years Study Date: 02/05/2024 1:59:33 PM Gender: F BP: 128/82 mmHg Height: 154.94 cm BSA: 1.96 m Weight: 98.88 kg Tech: AKANKSHA Referring MD: FLORA COHEN Site: [facility] Reading Location: [facility] Patient Location: Procedure: 2D, Color Doppler and Spectral Doppler. Indication for study: New onset atrial fibrillation Cardiac Rhythm: Atrial fibrillation.Study quality: Fair. Final Impressions: 1. Normal LV size, normal wall thickness, normal global systolic function with an estimated EF of 55 - 60%. 2. Right ventricular cavity size is normal, global systolic RV function is normal. 3. The mitral valve is sclerotic, no mitral regurgitation. Chamber Sizes and Function Normal left ventricular size, normal wall thickness, normal global systolic function with an estimated EF of 55 - 60%. No resting regional wall motion abnormality visualized. Left atrial size is normal. Left atrial pressure is normal. Right ventricular cavity size is normal, global systolic RV function is normal. RV wall thickness is normal. The right atrium is normal. The pulmonary artery is of normal size and origin. The sinus of Valsalva is normal sized. The ascending aorta is normal sized. Valves, RV Pressures and Diastolic Function The aortic valve is normal in structure and trileaflet, no stenosis and no regurgitation. The mitral valve is sclerotic, no mitral regurgitation. Indeterminate pattern of LV diastolic filling. The tricuspid valve is normal in structure. Tricuspid regurgitation is trace regurgitation. Unable to assess right ventricular systolic pressure. The pulmonic valve is not well visualized. No pulmonary regurgitation. Masses, Effusion, Shunts There is no pericardial effusion. The inferior vena cava is normal sized, respiratory size variation greater than 50%. No left to right shunting was detected by limited color flow Doppler interrogation of the interatrial septum. MEASUREMENTS AND CALCULATIONS 2-D Measurements and LV Function: LVID (d) 4.7 cm LV FS% (2D) 23 % LVID (s) 3.6 cm LVOT diameter 2.3 cm IVS (d) 0.9 cm HR 98 bpm LVPW (d) 0.9 cm LA Vol index 28 ml/m2 Ao Sinus 3.3 cm Asc Ao 3.3 cm Diastology: Mitral Tissue Doppler E Peak 0.9 m/s e', Septum 0.09 m/s DT 205 msec e', Lateral 0.18 m/s E/e' Average 6.50 Aortic Valve: Vmax 1.6 m/s CELI (V) 2.98 cm VTI 0.30 m CELI (I) 2.44 cm LVOT V max 1.2 m/s Max PG 10 mmHg LVOT VTI 0.17 m Mean PG 7 mmHg SV 72 ml Dim Index 0.59 SV index 37 ml/m CO 7.0 l/min CI 3.6 l/min/m Mitral Valve: MVA 3.7 cm MV P 1/2 59 msec Tricuspid Valve and estimated PA pressures: TAPSE 1.9 cm . This study was interpreted by an [facility] accredited facility. Final Procedure Note Karlo Saldaña MD - 02/05/2024 ECHOCARDIOGRAM CAROLEE ANDRES : 1950 73 years Study Date: 02/05/2024 1:59:33 PM Gender: F BP: 128/82 mmHg Height: 154.94 cm BSA: 1.96 m Weight: 98.88 kg Tech: [facility] Referring MD: FLORA COHEN Site: [facility] Reading Location: [facility] Patient Location: Procedure: 2D, Color Doppler and Spectral Doppler. Indication for study: New onset atrial fibrillation Cardiac Rhythm: Atrial fibrillation.Study quality: Fair. Final Impressions: 1. Normal LV size, normal wall thickness, normal global systolic functionwith an estimated EF of 55 - 60%. 2. Right ventricular cavity size is normal, global systolic RV functionis normal. 3. The mitral valve is sclerotic, no mitral regurgitation. Chamber Sizes and Function Normal left ventricular size, normal wall thickness, normal globalsystolic function with an estimated EF of 55 - 60%. No resting regionalwall motion abnormality visualized. Left atrial size is normal. Leftatrial pressure is normal. Right ventricular cavity size is normal, globalsystolic RV function is normal. RV wall thickness is normal. The rightatrium is normal. The pulmonary artery is of normal size and origin. Thesinus of Valsalva is normal sized. The ascending aorta is normal sized. Valves, RV Pressures and Diastolic Function The aortic valve is normal in structure and trileaflet, no stenosis and noregurgitation. The mitral valve is sclerotic, no mitral regurgitation.Indeterminate pattern of LV diastolic filling. The tricuspid valve isnormal in structure. Tricuspid regurgitation is trace regurgitation.Unable to assess right ventricular systolic pressure. The pulmonic valveis not well visualized. No pulmonary regurgitation. Masses, Effusion, Shunts There is no pericardial effusion. The inferior vena cava is normal sized,respiratory size variation greater than 50%. No left to right shunting wasdetected by limited color flow Doppler interrogation of the interatrialseptum. MEASUREMENTS AND CALCULATIONS 2-D Measurements and LV Function: LVID (d) 4.7 cm LV FS% (2D) 23 % LVID (s) 3.6 cm LVOT diameter 2.3 cm IVS (d) 0.9 cm HR 98 bpm LVPW (d) 0.9 cm LA Vol index 28 ml/m2 Ao Sinus 3.3 cm Asc Ao 3.3 cm Diastology: Mitral Tissue Doppler E Peak 0.9 m/s e', Septum 0.09 m/s DT 205 msec e', Lateral 0.18 m/s E/e' Average 6.50 Aortic Valve: Vmax 1.6 m/s CELI (V) 2.98 cm VTI 0.30 m CELI (I) 2.44 cm LVOT V max 1.2 m/s Max PG 10 mmHg LVOT VTI 0.17 m Mean PG 7 mmHg SV 72 ml Dim Index 0.59 SV index 37 ml/m CO 7.0 l/min CI 3.6 l/min/m Mitral Valve: MVA 3.7 cm MV P 1/2 59 msec Tricuspid Valve and estimated PA pressures: TAPSE 1.9 cm . This study was interpreted by an [facility] accredited facility. Final Flora Cohen NP ECHO ORD F inal Result * (ABNORMAL) HEMOGLOBIN A1C (02/05/2024 10:49 AM WILDLAND FIRE FIGHTER) HEMOGLOBIN A1C 5.7(H) <5.7 % of total Hgb [facility] Comment: For someone without known diabetes, a hemoglobin A1c value between 5.7% and 6.4% is consistent with prediabetes and should be confirmed with a follow-up test. For someone with known diabetes, a value <7% indicates that their diabetes is well controlled. A1c targets should be individualized based on duration of diabetes, age, comorbid conditions, and other considerations. This assay result is consistent with an increased risk of diabetes. Currently, no consensus exists regarding use of hemoglobin A1c for diagnosis of diabetes for children. Blood BLOOD SPECIMEN / Unknown 02/05/2024 10:49 AM WILDLAND FIRE FIGHTER 02/05/2024 10:50 AM WILDLAND FIRE FIGHTER us Flora Cohen NP CHEMISTRY F inal Result [employer] [facility] [address] [place] [address], [facility] [address] [place] [address] * (ABNORMAL) LIPID PANEL W REFLEX MEASURED LDL (02/05/2024 10:49 AM WILDLAND FIRE FIGHTER) CHOLESTEROL, TOTAL 191 <200 mg/dL [facility] HDL CHOLESTEROL 48(L) > OR = 50 mg/dL [facility] TRIGLYCERIDES 146 <150 mg/dL [facility] LDL-CHOLESTEROL 117(H) mg/dL (calc) [facility] Comment: Reference range: <100 Desirable range <100 mg/dL for primary prevention; <70 mg/dL for patients with CHD or diabetic patients with > or = 2 CHD risk factors. LDL-C is now calculated using the Jos-Ramos calculation, which is a validated novel method providing better accuracy than the Friedewald equation in the estimation of LDL-C. Jos TRUONG et al. PALOMA. 2013;310(19): 3194-5866 (http://education.BBOXX.Relatient/faq/GDN266) CHOL/HDLC RATIO 4.0 <5.0 (calc) [facility] NON HDL CHOLESTEROL 143(H) <130 mg/dL (calc) [facility] Comment: For patients with diabetes plus 1 major ASCVD risk factor, treating to a non-HDL-C goal of <100 mg/dL (LDL-C of <70 mg/dL) is considered a therapeutic option. Blood BLOOD SPECIMEN / Unknown 02/05/2024 10:49 AM WILDLAND FIRE FIGHTER 02/05/2024 10:50 AM WILDLAND FIRE FIGHTER us Flora Cohen NP CHEMISTRY F inal Result Performing Organization Address [facility]/ZIP Co de Phone Number [facility] [address] [place] [address], [place] [phone] [facility] [address] [place] [address] * VITAMIN D 25 (DEFICIENCY) (02/05/2024 10:49 AM WILDLAND FIRE FIGHTER) VITAMIN D,25-OH,TOTAL,IA 43 30 - 100 ng/mL [facility] Comment: Vitamin D Status 25-OH Vitamin D: Deficiency: <20 ng/mL Insufficiency: 20 - 29 ng/mL Optimal: > or = 30 ng/mL For 25-OH Vitamin D testing on patients on D2-supplementation and patients for whom quantitation of D2 and D3 fractions is required, the Quest[facility]ure[facility](TM) 25-OH VIT D, (D2,D3), LC/MS/MS is recommended: order code 33506 (patients >2yrs). See Note 1 Note 1 For additional information, please refer to http://education.WANdisco/faq/CII308 (This link is being provided for informational/ educational purposes only.) Blood BLOOD SPECIMEN / Unknown 02/05/2024 10:49 AM WILDLAND FIRE FIGHTER 02/05/2024 10:50 AM WILDLAND FIRE FIGHTER Flora Cohen NP SEND OUTS F inal Result [employer] [facility] [address] [place] [address], [place] [phone] [facility] [address] [place] [address] * TSH (02/05/2024 10:49 AM WILDLAND FIRE FIGHTER) TSH 1.79 0.40 - 4.50 mIU/L [facility] Blood BLOOD SPECIMEN / Unknown 02/05/2024 10:49 AM WILDLAND FIRE FIGHTER 02/05/2024 10:50 AM WILDLAND FIRE FIGHTER Flora Cohen NP CHEMISTRY F inal Result [facility] [address] [place] [address], [place] [phone] [facility] [address] [place] [address] * LYME SCREEN W/REFLEX (02/05/2024 10:49 AM WILDLAND FIRE FIGHTER) [facility] LYME AB, SCREEN < or = 0.90 index [facility], Comment: REFERENCE RANGE: < OR = 0.90 Index Index Interpretation < OR = 0.90 NEGATIVE 0.91 - 1.09 EQUIVOCAL > OR = 1.10 POSITIVE This assay measures Lyme Disease (Borrelia burgdorferi) IgG plus IgM antibodies; it does not distinguish results that are both IgG and IgM positive from results that are either IgG or IgM positive. As recommended by the Centers for Disease Control and Prevention (CDC), all samples with positive or equivocal results in this screening assay will be tested using separate supplemental Lyme IgG and IgM immunoassays. Positive or equivocal screening assay results should not be interpreted as truly positive until verified as such using the supplemental assays. Screening and/or supplemental tests for Lyme disease antibodies may be falsely negative in early stages of Lyme disease, including the period when erythema migrans is apparent. These assays may be falsely positive in patients with other spirochetal diseases (e.g., syphilis) or infectious mononucleosis. Blood BLOOD SPECIMEN / Unknown 02/05/2024 10:49 AM WILDLAND FIRE FIGHTER 02/05/2024 10:50 AM WILDLAND FIRE FIGHTER us Flora Cohen NP SEND OUTS F inal Result [facility] [place] [address]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
== END 2024-03-20 09:35 | disposition home or self-care (01) ==
PROVIDERS: Emergency Provider Emergency Medicine Emergency Medical Services; PCP Nurse Practitioner Gerontology
DX: S80.12XA Contusion of left lower leg, initial encounter (principal); M79.662 Pain in left lower leg
CPT/HCPCS: 93971; 99284